=== PATIENT | male | born 1955 | race Caucasian/White ===

== ENCOUNTER 2017-06-19 04:53 | Emergency (ER) | payer OTHER ==
[~2017-06-19] VITALS: Ht 167.6 cm; Wt 77.9 kg
[2017-06-19] MEDS ORDERED: TRAMADOL HCL50 MG PO (07:12)
[2017-06-19 07:30] VITALS: BP 128/72
== END 2017-06-19 07:31 | disposition home or self-care (01) ==
LOC: EME 04:53
DX: J06.9 Acute upper respiratory infection, unspecified (principal); R49.0 Dysphonia
CPT/HCPCS: 71020; 87651 90; 99281; 99284; J1100